=== PATIENT | female | born 1975 | race Caucasian/White ===

== ENCOUNTER 2023-03-30 11:00 | Outpatient (AMB) | payer OTHER, SELFPAY ==
[2023-03-30 11:02] VITALS: BP 130/70; PULSE 90; TEMP 36.6; O2SAT 97
--- NOTE | 2023-03-30 11:02 | AM.OFFWIN_ITS ---
Intake Vital Signs 03/30/23 11:02 Height 5 ft BP 130/70 Blood Pressure Location Rt brachial Position Sitting Pulse 90 Pulse Source Pulse Oximeter Temp 97.9 F Temp Source Temporal Artery Scan Pulse Oximetry (%) 97 Intake Visit Reasons: [employer] Cut index finger Intake Note: pt is here for c/o cut on finger requesting stitches Patient Tobacco Use Status: Current everyday Tobacco user Allergies No Known Allergies Allergy (Verified 03/30/23 11:02) Do you need a note to return to daycare/school/sports/work: No HPI [employer] Cut index finger HPI Details Patient is new to this clinic, and comes to the walk-in complaining of cutting herself with hedge trimmers to her left index finger this morning. Bleeding controlled with managing immediately. No underlying blood thinners or bleeding dyscrasias. No loss of range of motion. Reviewed past medical history with the patient. Denies pertinent history PFSH Social History Patient Tobacco Use Status: Current everyday Tobacco user Physical Exam Vital Signs: Last Vital Signs Temp 97.9 F 03/30/23 11:02 Pulse 90 03/30/23 11:02 BP 130/70 03/30/23 11:02 Pulse Ox 97 03/30/23 11:02 Skin Other: Approximately 0.5 cm laceration to the anterior aspect of the left index finger just proximal to the DIP. Bleeding controlled. Good range of motion and strength. Sensation intact distally. Good cap refill. Office Procedures Laceration Repair Details: Approximately 0.5 cm laceration to the anterior aspect of the left index finger just proximal to the DIP Laceration repair performed by: Melinda Cruz Explained risks and benefits to parent: Yes Informed consent given: Yes Consent signed: No Location: Left index finger Length: 0.5cm Sedation: No Anesthesia: 2% lidocaine Irrigation: saline Preparation: betadine Wound exploration: other (No tendon involvement apparent) Deep closure: No Skin closure: nylon (5-0) Topical treatment: other (Bacitracin) Tetanus toxoid ordered: No Patient tolerated procedure: well Complications: No [id number] Repair <2.5cm Additional procedure code (CPT) needed Assessment & Plan Assessment & Plan (1) Laceration of finger of left hand: Code(s): S61.219A - Laceration without foreign body of unspecified finger without damage to nail, initial encounter Plan After copious irrigation with normal saline and Betadine, the incision was sutured closed in sterile field with 2 sutures placed for hemostasis obtained. She still had good range of motion, but decreased strength after procedure as she states the finger was still numb from anesthesia. Advised she return for wound check in 2 days, and keep the finger clean covered and dry overall. She should check under the bandage daily. She will need her sutures a. She will definitely need sooner if she develops any fever chills, increased pain or swelling, redness or warmth to the area, recurrent bleeding, or discharge. She should have her strength and range of motion tested again at follow-up to be sure hand specialists is not warranted, however she had good range of motion and strength today prior to procedure. Coding Level of Care Code New Pt Level 5 (82837) Diagnoses Laceration of finger of left hand S61.219A
== END 2023-03-30 12:26 | disposition home or self-care (01) ==
PROVIDERS: PCP Clinical Nurse Specialist Psychiatric/Mental Health, Adult; Visit Provider Physician Assistant Medical
DX: S61.211A Laceration without foreign body of left index finger without damage to nail, initial encounter (principal)
CPT/HCPCS: 12001; 99051; 99204

== ENCOUNTER 2023-04-02 09:39 | Outpatient (AMB) | payer OTHER, SELFPAY ==
[2023-04-02 10:01] VITALS: BP 116/68; PULSE 94; TEMP 36.3; O2SAT 100; BMI 20.7
--- NOTE | 2023-04-02 10:01 | AM.OFFWIN_ITS ---
Intake Vital Signs 04/02/23 10:01 Height 5 ft Weight 106 lb 2 oz BMI 20.7 BP 116/68 Blood Pressure Location Rt brachial Position Sitting Pulse 94 Pulse Source Pulse Oximeter Temp 97.4 F Temp Source Temporal Artery Scan Pulse Oximetry (%) 100 Oxygen Delivery Method Room Air Intake Visit Reasons: EP, Left Index finger laceration fu Patient Tobacco Use Status: Current everyday Tobacco user Allergies No Known Allergies Allergy (Verified 04/02/23 10:24) Medication List - Last Reconciled 04/02/23 by Gregg Ibrahim MD sertraline 50 mg PO DAILY Do you need a note to return to daycare/school/sports/work: No HPI EP, Left Index finger laceration fu HPI Details 47-year-old female presents to the office for a follow-up visit. She had her finger sutured up on Saturday last and was asked to return for a follow- up exam. Patient is tolerated the procedure well. She reports no problems. [facility] Social History Patient Tobacco Use Status: Current everyday Tobacco user Physical Exam Vital Signs: Last Vital Signs Temp 97.4 F 04/02/23 10:01 Pulse 94 04/02/23 10:01 BP 116/68 04/02/23 10:01 Pulse Ox 100 04/02/23 10:01 Oxygen Delivery Method Room Air 04/02/23 10:01 BMI result Body Mass Index 20.7 Skin Other: Index finger: Wound appears well sutured. Sutures are in place. Wound healing is good. No erythema or discharge. Assessment & Plan Assessment & Plan (1) Wound, open, finger: Code(s): S61.209A - Unspecified open wound of unspecified finger without damage to nail, initial encounter Plan: Reassurance. Wound healing is good. Coding Level of Care Code Est Pt Level 3 (38490) Diagnoses Wound, open, finger S61.209A
== END 2023-04-02 11:13 | disposition home or self-care (01) ==
PROVIDERS: PCP Clinical Nurse Specialist Psychiatric/Mental Health, Adult; Visit Provider Internal Medicine
DX: S61.209A Unspecified open wound of unspecified finger without damage to nail, initial encounter (principal)
CPT/HCPCS: 99213